=== PATIENT | male | born 1990 | race Caucasian/White ===

== ENCOUNTER 2022-02-03 09:28 | Emergency (ER) | payer BC, OTHER ==
[2022-02-03] MEDS ORDERED: HYDROmorphone 0.5 MG/0.5 ML Syringe IVPUSH ONE (09:56)
[2022-02-03] MEDS ORDERED: Lactated Ringers 1,000 ML IV SCH (10:00)
[2022-02-03] MEDS ORDERED: Sodium Chloride 0.9% 10 ML Syringe FLUSH ONE (10:18)
[2022-02-03] MEDS ORDERED: Iopamidol 612 MG/ML 100 ML Bottle IVPUSH ONE (10:18)
[2022-02-03] MEDS ORDERED: Piperacillin/Tazobactam 4.5 GM in Sodium Chloride 0.9% 100 ML IV ONE (11:07)
[2022-02-03] MEDS ORDERED: cefTRIAXone 2 GM in Sodium Chloride 0.9% 100 ML IV ONE (11:10)
[2022-02-03] MEDS ORDERED: metroNIDAZOLE/Normal Saline 500 MG in Premix Bag 1 BAG IV ONE (11:10)
[2022-02-03] MEDS ORDERED: Ondansetron 4 MG/2 ML SDV IVPUSH ONE (11:12)
[2022-02-03] MEDS ORDERED: Sodium Chloride 0.9% 1,000 ML IV SCH (11:15)
[2022-02-03] MEDS ORDERED: Bupivacaine 0.5%/EPINEPHrine 1:200,000 50 ML MDV ONE (11:43)
[2022-02-03] MEDS ORDERED: Lidocaine 1% with EPINEPHrine 1:100,000 20 ML MDV ONE (11:43)
== END 2022-02-03 13:30 | disposition critical access hospital (66) ==
LOC: JD.ED 09:28
DX: K35.30 Acute appendicitis with localized peritonitis, without perforation or gangrene (principal); Z86.16 Personal history of COVID-19; Z79.899 Other long term (current) drug therapy
CPT/HCPCS: 36415; 74177; 80053; 85007; 85027; 86140; 96365; 96367; 96375; 99285; J0696; J1170; J2405; J3490; J7030; J7120; Q9967

== ENCOUNTER 2024-08-06 08:10 | Day surgery (SDC) | payer OTHER, BC ==
[~2024-08-06 08:10] MED LIST: Sodium Chloride 0.9% 10 ML Syringe FLUSH PRN; Sodium Chloride 0.9% 10 ML Syringe FLUSH SCH
[2024-08-06] MEDS ORDERED: Propofol 200 MG/20 ML SDV ONE ×3 (08:40)
[2024-08-06] MEDS: Lactated Ringers 1,000 ML IV SCH (08:40)
[2024-08-06] MEDS ORDERED: Midazolam 1 MG/ML 2 ML SDV ONE (08:41)
[2024-08-06] MEDS ORDERED: Phenylephrine 1% 10 MG/ML SDV ONE (08:42)
[2024-08-06] MEDS ORDERED: Lidocaine 1% 4 ML ONE (08:47)
[2024-08-06] MEDS ORDERED: Lidocaine 1% PF 2 ML SDV ONE ×2 (08:47)
[2024-08-06] MEDS ORDERED: Ketorolac 15 MG/ML SDV ONE ×3 (09:16)
== END 2024-08-06 10:40 | disposition home or self-care (01) ==
LOC: JD.SDS 08:10
PROVIDERS: ATTEND Surgery
DX: K21.9 Gastro-esophageal reflux disease without esophagitis (principal); K44.9 Diaphragmatic hernia without obstruction or gangrene; F32.A Depression, unspecified; Z79.899 Other long term (current) drug therapy
CPT/HCPCS: 43239; J1885; J2250; J2704; J7120; 00731; J2371; J3490

== ENCOUNTER 2024-08-20 11:14 | Observation (INO) | payer OTHER, BC ==
[~2024-08-20 11:14] MED LIST changes: +HYDROmorphone 0.5 MG/0.5 ML Syringe IVPUSH PRN; +Lidocaine 1% 5 ML VIAL ONE; +Midazolam 1 MG/ML 2 ML SDV ONE; +Ondansetron 4 MG/2 ML SDV IVPUSH PRN; +Ondansetron 4 MG/2 ML SDV ONE; +Propofol 200 MG/20 ML SDV ONE; +Rocuronium 50 MG/5 ML Vial ONE; -Sodium Chloride 0.9% 10 ML Syringe FLUSH SCH; +ceFAZolin 2 GM Vial ONE; +fentaNYL 100 MCG/2 ML SDV IVPUSH PRN; +fentaNYL 250 MCG/5 ML SDV ONE
[2024-08-20] MEDS ORDERED: Dexamethasone 4 MG/ML 5 ML MDV ONE (11:25)
[2024-08-20] MEDS ORDERED: Ondansetron 4 MG/2 ML SDV ONE (11:25)
[2024-08-20] MEDS ORDERED: dexmedeTOMIDine HCl 200 MCG/2 ML SDV ONE (11:26)
[2024-08-20] MEDS ORDERED: Lactated Ringers 1,000 ML ONE ×2 (11:38→13:09)
[2024-08-20] MEDS: Lactated Ringers 1,000 ML IV SCH ×2 (11:40→18:49)
[2024-08-20 11:53] LABS: BASOPHILS ABSOLUTE AUTO 0.1 K/mm3 (0.0-0.2); BASOPHILS PERCENT AUTO 0.7 % (0.0-1.0); EOSINOPHILS ABSOLUTE AUTO 0.2 K/mm3 (0.0-0.4); EOSINOPHILS PERCENT AUTO 2.8 % (0.0-6.0); HEMATOCRIT 43.8 % (42.0-52.0); HEMOGLOBIN 14.9 gm/dl (14.0-18.0); IMMATURE GRAN ABSOLUTE AUTO 0.02 K/mm3 (0.00-0.05); IMMATURE GRAN PERCENT AUTO 0.3 % (0.0-0.4); LYMPHOCYTES ABSOLUTE AUTO 2.4 K/mm3 (1.0-4.8); LYMPHOCYTES PERCENT AUTO 31.6 % (24.0-44.0); MEAN CORPUSCULAR HEMOGLOBIN 28.5 pg (28.0-32.0); MEAN CORPUSCULAR VOLUME 83.9 fl (83.0-99.0); MONOCYTES ABSOLUTE AUTO 0.8 K/mm3 (0.0-0.8); MONOCYTES PERCENT AUTO 10.2 % (0.0-8.0); NEUTROPHILS ABSOLUTE AUTO 4.1 K/mm3 (1.8-7.7); NEUTROPHILS PERCENT AUTO 54.4 % (41.0-71.0); PLATELET COUNT,PLT 402 K/mm3 (150-400); RED BLOOD CELL COUNT 5.22 M/mm3 (4.52-5.90); WHITE BLOOD CELL COUNT,WBC 7.57 K/mm3 (3.9-11.3)
[2024-08-20 12:06] LABS: ALANINE AMINOTRANSFERASE,ALT 41 U/L (16-63); ALBUMIN 4.2 g/dl (3.4-5.0); ALKALINE PHOSPHATASE 125 U/L (46-116); ANION GAP 16.4 (5-15); ASPARTATE AMNIOTRANSFERASE,AST 18 U/L (15-37); BILIRUBIN TOTAL 0.4 mg/dL (0.2-1.0); BLOOD UREA NITROGEN,BUN 20 mg/dL (7-18); BUN/CREATININE RATIO 18.2 (14-18); CALCIUM 9.5 mg/dL (8.5-10.1); CARBON DIOXIDE,CO2 26 mEq/L (21-32); CHLORIDE,CL 102 mEq/L (98-107); CREATININE 1.1 mg/dL (0.7-1.3); ESTIMATED GFR 91 mL/min (>60); GLUCOSE RANDOM 90 mg/dL (70-99); POTASSIUM,K 4.4 mEq/L (3.5-5.1); PROTEIN TOTAL,TP 8.3 g/dl (6.4-8.2); SODIUM,NA 140 mEq/L (136-145)
[2024-08-20] MEDS ORDERED: HYDROmorphone 0.5 MG/0.5 ML Syringe ONE ×2 (12:06→12:50)
[2024-08-20] MEDS ORDERED: HYDROmorphone 0.5 MG/0.5 ML Syringe IVPUSH PRN (12:12)
[2024-08-20] MEDS ORDERED: fentaNYL 100 MCG/2 ML SDV IVPUSH PRN (12:12)
[2024-08-20] MEDS ORDERED: droPERidol 5 MG/2 ML SDV IVPUSH PRN (12:12)
[2024-08-20] MEDS ORDERED: Ondansetron 4 MG/2 ML SDV IVPUSH PRN (12:12)
[2024-08-20] MEDS ORDERED: Rocuronium 50 MG/5 ML Vial ONE (12:17)
[2024-08-20] MEDS: EPINEPHrine 1 MG/ML SDV ONE (12:54)
[2024-08-20] MEDS: Bupivacaine 0.5% 30 ML SDV ONE (12:54)
[2024-08-20] MEDS ORDERED: Sugammadex Sodium 200 MG/2 ML VIAL IV ONE (13:00)
[2024-08-20] MEDS ORDERED: Ketorolac 30 MG/ML SDV ONE (13:02)
[2024-08-20] MEDS ORDERED: Benzocaine/Cetylpyridinium/Menthol Lozenge MUCMEM PRN (14:27)
[2024-08-20] MEDS ORDERED: diphenhydrAMINE 50 MG/ML SDV IVPUSH PRN (14:27)
[2024-08-20] MEDS ORDERED: Acetaminophen 325 MG Tab PO PRN (14:27)
[2024-08-20] MEDS ORDERED: DEXTROAMPHETAMINE PO PRN (14:35)
[2024-08-20] MEDS ORDERED: AMPHETAMINE PO PRN (14:35)
[2024-08-20] MEDS: Sodium Chloride 0.9% 10 ML Syringe FLUSH SCH (15:30)
[2024-08-20] MEDS: Venlafaxine 37.5 MG Cap.ER PO ONE ×2 (16:57→17:24)
[2024-08-20] MEDS: Ondansetron 4 MG/2 ML SDV IVPUSH PRN (17:24)
[2024-08-20] MEDS: Simethicone 80 MG Tab.Chew PO PRN (18:05)
[2024-08-20] MEDS: Ketorolac 15 MG/ML SDV IVPUSH SCH (18:34)
[2024-08-20] MEDS: HYDROmorphone 0.5 MG/0.5 ML Syringe IVPUSH PRN (20:18)
[2024-08-20] MEDS: LACOSAMIDE 150 MG PO SCH (20:18)
[2024-08-20] MEDS: Promethazine 25 MG Tab PO PRN (20:42)
[2024-08-21] MEDS: Acetaminophen/HYDROcodone 325-5 MG Tab PO PRN (03:54)
[2024-08-21 06:47] LABS: HEMATOCRIT 38.9 % (42.0-52.0); MEAN CORPUSCULAR HEMOGLOBIN 28.9 pg (28.0-32.0); MEAN CORPUSCULAR HGB CONC 33.9 g/dl (32.0-36.0); MEAN CORPUSCULAR VOLUME 85.1 fl (83.0-99.0); MEAN PLATELET VOLUME 9.2 fl (9.4-12.4); PLATELET COUNT,PLT 358 K/mm3 (150-400); RED BLOOD CELL COUNT 4.57 M/mm3 (4.52-5.90); WHITE BLOOD CELL COUNT,WBC 13.65 K/mm3 (3.9-11.3)
[2024-08-21 06:48] LABS: HEMOGLOBIN 13.2 gm/dl (14.0-18.0)
[2024-08-21 07:11] LABS: ANION GAP 11.7 (5-15); BUN/CREATININE RATIO 13.6 (14-18); CALCIUM 9.3 mg/dL (8.5-10.1); CREATININE 1.1 mg/dL (0.7-1.3); EST CRCL DRUG DOSING (CG) 90.14 mL/min; POTASSIUM,K 4.7 mEq/L (3.5-5.1)
[2024-08-21] MEDS: Sodium Chloride 0.9% 1,000 ML IV ONE (07:51)
[2024-08-21] MEDS: Venlafaxine 75 MG Cap.ER PO SCH (08:51)
[2024-08-21] MEDS ORDERED: Venlafaxine 37.5 MG Cap.ER PO SCH (09:00)
== END 2024-08-21 09:10 | disposition home or self-care (01) ==
LOC: INTOOBSV 11:14 → JD.MS 11:14
PROVIDERS: ADMIT Surgery; ATTEND Surgery
DX: K44.9 Diaphragmatic hernia without obstruction or gangrene (principal); K21.9 Gastro-esophageal reflux disease without esophagitis; Z88.8 Allergy status to other drugs, medicaments and biological substances; Z79.899 Other long term (current) drug therapy
CPT/HCPCS: 36415; 43281; 80048; 80053; 85025; 85027; 94761; A9270; J0171; J0665; J0690; J1100; J1171; J1885; J2250; J2405; J2704; J3010; J3490; J7030; J7120; J8597